=== PATIENT | female | born 2000 | race African-American/Black ===

== ENCOUNTER 2023-03-21 12:22 | Day surgery (SDC) | payer BC ==
[2023-03-14 15:34] VITALS: BMI 44.9
[2023-03-21] MEDS ORDERED: LIDOCAINE HCL/PF 2% SDV 5ML VIAL ONE (12:28)
[2023-03-21 13:35] VITALS: TEMP 98.7
[2023-03-21 13:37] VITALS: BP 129/68; PULSE 69; RESP 19
== END 2023-03-21 13:40 | disposition home or self-care (01) ==
LOC: FASU-ENDO 12:22
PROVIDERS: ATTEND Internal Medicine Gastroenterology
PROC: 0DB68ZX Excision of Stomach, Via Natural or Artificial Opening Endoscopic, Diagnostic (ICD-10-PCS; 2023-03-21)
PROC: 0DB48ZX Excision of Esophagogastric Junction, Via Natural or Artificial Opening Endoscopic, Diagnostic (ICD-10-PCS; 2023-03-21)
PROC: 0DB98ZX Excision of Duodenum, Via Natural or Artificial Opening Endoscopic, Diagnostic (ICD-10-PCS; principal; 2023-03-21 12:50)
DX: K29.50 Unspecified chronic gastritis without bleeding (principal); K20.90 Esophagitis, unspecified without bleeding; R10.13 Epigastric pain
CPT/HCPCS: 88305-TC; 88342-TC